=== PATIENT | female | born 1950 | race African-American/Black ===

== ENCOUNTER 2016-03-20 09:13 | Inpatient (IN) | payer OTHER ==
[2016-03-20 09:19] VITALS: BMI 35.2
--- NOTE | 2016-03-20 09:59 | PDOC ---
History of Present Illness - General Chief Complaint: Lightheaded Stated Complaint: WEAKNESS, DIZZINESS Time Seen by Provider: 03/20/16 09:28 History Source: Patient Exam Limitations: No Limitations - History of Present Illness Initial Comments: 03/20/16 10:08 65 year old female with PMH of hysterectomy 10 years ago presents to ED with dizziness upon standing and while walking. She states this started on Thursday and has been intermittent since then. She feels fine while seated or laying down. This is her first episode of vertigo like this. She also reports some increased urination & mild runny nose for last week or two. Denies any recent illness, sick contacts or changes in diet. No headache, chest pain, shortness of breath, visual changes, productive cough, diarrhea, constipation, nausea, vomiting or incontinence. Does not regularly see a PCP. Past History - Travel Traveled outside of the country in the last 30 days: No Close contact w/someone who was outside of country & ill: No - Past Medical History Allergies/Adverse Reactions: Allergies Allergy/AdvReac Type Severity Reaction Status Date / Time No Known Allergies Allergy Verified 03/20/16 09:19 Home Medications: Ambulatory Orders NK [No Known Home Medication] 03/20/16 HTN: Yes (HAS BEEN TOLD IN PAST SHE HAS ELEVATED BP (NEVER ON ANY MEDS)) Other medical history: DENIES - Surgical History Other Surgical History: 03/20/16 10:15 Hysterectomy (10-15 years ago) - Family Disease History Comment:: Breast Cancer Mother Parkinsons Father - Psycho/Social/Smoking Cessation Hx Suicidal Ideation: No Smoking Status: Yes Smoking History: Current every day smoker Number of Cigarettes Smoked Daily: 3 Information on smoking cessation initiated: No Hx Alcohol Use: No Drug/Substance Use Hx: No Review of Systems - Review of Systems Able to Perform ROS?: Yes Is the patient limited Turkmen proficient: No Constitutional: No: Symptoms Reported, See HPI, Chills, Diaphoresis, Fever, Loss of Appetite, Malaise, Night Sweats, Weakness, Weight Stable, Unintentional Wgt. Loss, Unexplained wgt Loss, Other Respiratory: Yes: Other (Runny nose) : Yes: Other (increased urination) Neurological: Yes: Unsteady Gait *Physical Exam - Vital Signs Last Vital Signs Temp Pulse Resp BP Pulse Ox 98.3 F 107 H 18 164/84 96 03/20/16 09:15 03/20/16 09:15 03/20/16 09:15 03/20/16 09:15 03/20/16 09:15 - Physical Exam General Appearance: Yes: Nourished, Appropriately Dressed HEENT: positive: EOMI, VERONIKA, Normal ENT Inspection Neck: positive: Trachea midline, Normal Thyroid, Supple Respiratory/Chest: positive: Lungs Clear, Normal Breath Sounds Cardiovascular: positive: Regular Rhythm, Regular Rate, S1, S2 Gastrointestinal/Abdominal: positive: Normal Bowel Sounds, Flat, Soft Musculoskeletal: positive: Normal Inspection Extremity: positive: Normal Inspection, Normal Range of Motion Integumentary: positive: Normal Color, Dry, Warm Neurologic: positive: referral management liaison II-XII NML intact, Fully Oriented, Alert, Normal Mood/ Affect, Motor Strength 5/5, Other (Vertigo upon standing, needs assistance walking short distances due to gait imbalance, NEGATIVE NYSTAGMUS) Heart Score/ECG Review - ECG Impressions Comment:: 03/20/16 10:14 Normal Sinus Rhythm, Voltage criteria for LVH, Nonspecific T-wave abnormality, QTC 464, HR 95. No old EKG's available. ED Treatment Course - LABORATORY CBC & Chemistry Diagram: 03/20/16 09:59 03/20/16 09:59 Medical Decision Making - Medical Decision Making 03/20/16 10:19 Ordered CBC, CMP, UA. Will order Head CT given patient's HTN & Smoking history. Gentle IV hydration started. 03/20/16 16:13 CT Head notable for right caudate head infarct of indeterminate age (also likely a small focal left anterior periventricular old infarct) Neurology was paged and agrees with decision to admit patient for further workup /treatment as her gait is still diminished. Dr Bond notified and accepts admission. NIH stroke scale-2 *DC/Admit/Observation/Transfer Diagnosis at time of Disposition: CVA (cerebral vascular accident), Vertigo, Neurologic gait dysfunction - Discharge Dispostion Admit: Yes
[2016-03-20] MEDS ORDERED: MECLIZINE HCL 25 MG TABLET (FP) PO ONE (10:06)
--- NOTE | 2016-03-20 10:10 | PDOC ---
Attending Attestation - Medical Decision Making 03/20/16 12:[address] Martines (neurologist bond analyst) at 12:34. 03/20/16 12:[address] Martines at 12:38. <Nam Bhatia - Last Filed: 03/20/16 12:38> - Resident Resident Name: Biju Pope - ED Attending Attestation I have performed the following: I have examined & evaluated the patient, The case was reviewed & discussed with the resident, I agree w/resident's findings & plan - HPI HPI: 03/20/16 10:08 65-year-old female with a negative past medical history Presents with some vertigo, dizziness nd unsteady gait when standing up and walking for the past few days She denies any focal neurologic complaints She denies any blurred vision or double vision She denies any headache She denies any recent intercurrent illnesses She states she is fine sitting down without any change in position She denies any chest pain or shortness of breath - Physicial Exam PE: 03/20/16 10:08 To my physical exam Head is normocephalic and atraumatic Lungs are clear Heart is regular Abdomen is soft and nontender PERRL, EOMI, without nystagmus Rapid change in head position causes some dizziness/vertigo Motor is 5 out of 5 and equal in the upper and lower extremities bilaterally Gait-patient gets dizzy standing up and gait is unstable-I needed to sit her back down immediately - Medical Decision Making 03/20/16 10:09 EKG Normal sinus rhythm 95, normal axis First degree AV block Normal QRS duration QTC 464 LVH by voltage criteria Nonspecific ST-T wave abnormality No old EKGs are available for comparison at this time 03/20/16 10:52 Possible simple vertigo, however, because of abnormal gait, will check CT scan labwork and reevaluate after Antivert Symptoms started a few days ago 03/20/16 12:27 Laboratory Results - last 24 hr 03/20/16 03/20/16 03/20/16 09:59 09:59 10:10 WBC 6.7 RBC 5.05 Hgb 13.7 Hct 42.0 MCV 83.2 MCHC 32.7 RDW 14.4 Plt Count 231 MPV 9.1 Neutrophils % 51.8 Lymphocytes % 40.4 H Monocytes % 6.2 Eosinophils % 0.6 Basophils % 1.0 Sodium 140 Potassium 4.0 Chloride 106 Carbon Dioxide 26 Anion Gap 8 BUN 12 Creatinine 0.9 Creat Clearance w eGFR > 60 Random Glucose 128 H Calcium 9.4 Total Bilirubin 0.3 AST 11 L ALT 25 Alkaline Phosphatase 61 Total Protein 7.3 Albumin 4.1 Urine Color Yellow Urine Appearance Clear Urine pH 5.0 Ur Specific Grace 1.016 Urine Protein Negative Urine Glucose (UA) Negative Urine Ketones Negative Urine Blood Negative Urine Nitrite Negative Urine Bilirubin Negative Urine Urobilinogen Negative Ur Leukocyte Esterase Trace H Urine RBC 1 Urine WBC 1 Ur Epithelial Cells Rare Urine Mucus Rare CT scan of the head without Mild atrophy, chronic microvascular ischemic changes There is a right caudate head infarct of indeterminate age There is also likely a small focal left anterior periventricular old infarct 03/20/16 12:50 The patient up to walk her, and her gait is still a little off , but slightly better than earlier handy earlier Case discussed with Dr. WyattMdqbset-jmipqnjea-pjxe admit, plan is for MRI and further possible stroke workup Case discussed with Dr. Bond-service medicine-will admit NIH stroke scale-2 <Marlee Brannon - Last Filed: 03/20/16 12:54> Discharge Disposition - Discharge Dispostion Last Admission D/C Date: 12/01/98 Admit: Yes <Marlee Brannon - Last Filed: 03/20/16 12:54> - Diagnosis CVA (cerebral vascular accident), Vertigo, Neurologic gait dysfunction NIH Stroke Scale - Initial Evaluation Level of consciousness: Alert Ask patient the month and their age: Answers both correctly Ask patient to open & close eyes; make fist and let go: Obeys both correctly Best gaze (horizontal eye movement): Normal Visual field testing: No visual field loss Facial paresis (Show teeth/raise eyebrows/close eyes tight): Normal symmetrical movement Motor Function: Left Arm: Normal Motor Function: Right Arm: Normal (extends arm 90 (or 45) degrees for 10 seconds without drift Motor Function: Left Leg: Normal (extends leg 30 degrees for 5 seconds without drift) Motor Function: Right Leg: Normal (extends leg 30 degrees for 5 seconds without drift) Limb Ataxia: Present in two limbs Sensory(Use pinprick test arms,legs,trunk,face/side to side): Normal Best language (Describe picture, name items, read sentences): No Aphasia Dysarthria (read several words): Normal articulation Extinction and Inattention: No abnormality - Total Score NIH Stroke Scale Score: 2 <Marlee Brannon - Last Filed: 03/20/16 12:54>
[2016-03-20] MEDS ORDERED: SODIUM CHLORIDE 1,000 ML IV SCH (10:15)
[2016-03-20 10:35] LABS: EOSINOPHIL 0.6 % (0-4.5); MCH 27.2 pg (25.7-33.7); MCHC 32.7 g/dl (32.0-36.0); MEAN CELL VOLUME 83.2 fl (80-96); MEAN PLT VOLUME 9.1 fl (7.5-11.1); NEUTROPHILS 51.8 % (42.8-82.8); PLATELET COUNT 231 K/MM3 (134-434); RDW 14.4 % (11.6-15.6); WHITE BLOOD COUNT 6.7 K/mm3 (4.0-10.0)
[2016-03-20 10:54] LABS: ALBUMIN 4.1 g/dl (3.4-5.0); ANION GAP 8 (8-16); CALCIUM 9.4 mg/dL (8.5-10.1); CO2 26 mmol/L (21-32); CREATININE 0.9 mg/dL (0.55-1.02); GLUCOSE,RANDOM 128 mg/dL (74-106); SGOT/AST 11 U/L (15-37); SGPT/ALT 25 U/L (12-78); TOT PROT 7.3 g/dl (6.4-8.2)
[2016-03-20 11:00] LABS: ALK PHOS 61 U/L (45-117); BILIRUBIN,TOTAL 0.3 mg/dL (0.2-1.0)
[2016-03-20 11:03] LABS: URINE APPEARANCE CLEAR; URINE BILIRUBIN NEGATIVE (NEGATIVE); URINE BLOOD NEGATIVE (NEGATIVE); URINE COLOR YELLOW; URINE GLUCOSE (UA) NEGATIVE (NEGATIVE); URINE KETONE NEGATIVE (NEGATIVE); URINE NITRITE NEGATIVE (NEGATIVE); URINE PROTEIN NEGATIVE (NEGATIVE); URINE UROBILINOGEN NEGATIVE E.U./dl (0.2-1.0)
[2016-03-20 11:07] LABS: URINE LEUK ESTERASE TRACE (NEGATIVE)
[2016-03-20 11:09] LABS: URINE MUCUS RARE; URINE RBC 1 /hpf (0-3); URINE WBC 1 /hpf (3-5)
[2016-03-20] MEDS ORDERED: MECLIZINE HCL 25 MG TABLET (FP) ONE (11:49)
[2016-03-20] MEDS: SODIUM CHLORIDE 500 ML IV SCH (12:03)
--- NOTE | 2016-03-20 12:33 | EKG ---
Test Reason : Blood Pressure : / mmHG Vent. Rate : 095 BPM Atrial Rate : 095 BPM P-R Int : 200 ms QRS Dur : 086 ms QT Int : 370 ms P-R-T Axes : 023 014 033 degrees QTc Int : 464 ms NORMAL SINUS RHYTHM VOLTAGE CRITERIA FOR LEFT VENTRICULAR HYPERTROPHY NONSPECIFIC T WAVE ABNORMALITY ABNORMAL ECG WHEN COMPARED WITH ECG OF 23-NOV-1998 10:42, NO SIGNIFICANT CHANGE WAS FOUND Confirmed by WENDIE DESAI, DONA ([id number]) on 03/20/2016 12:33:24 PM Referred By: Confirmed By:DONA PRESSLEY MD
--- NOTE | 2016-03-20 15:48 | CON.NEURO ---
Consult Consult Specialty:: [facility] Referred by:: ER Reason for Consultation:: dizzy - History of Present Illness History of Present Illness: 65 woman with PMH CAD OA Hysterectomy With dizzy feeling off balance No nausea No abdominal pain no CP Seen in [facility] ER Head CT noted and reviewed - History Source History Provided By: Patient Limitations to Obtaining History: No Limitations - Alcohol/Substance Use Hx Alcohol Use: No - Smoking History Smoking history: Current every day smoker Aproximately how many cigarettes per day: 3 Home Medications - Allergies Allergies/Adverse Reactions: Allergies Allergy/AdvReac Type Severity Reaction Status Date / Time No Known Allergies Allergy Verified 03/20/16 09:19 - Home Medications Home Medications: Ambulatory Orders NK [No Known Home Medication] 03/20/16 Family Disease History - Family Disease History Family History: Unable to Obtain Review of Systems - Review of Systems Constitutional: reports: No Symptoms Eyes: reports: No Symptoms HENT: reports: No Symptoms Physical Exam-Neuro Vital Signs: Vital Signs Temperature 98.3 F 03/20/16 09:15 Pulse Rate 107 H 03/20/16 09:15 Respiratory Rate 18 03/20/16 09:15 Blood Pressure 164/84 03/20/16 09:15 O2 Sat by Pulse Oximetry (%) 100 03/20/16 13:58 Constitutional: Yes: Well Nourished Neck: Yes: WNL Cardiovascular: Yes: WNL - Neuro Exam Level Of Consciousness: Yes: Oriented to Person, Oriented to Place, Oriented to Time Eyes: Yes: PERRLA Speech: WNL Dominant Hand: Right Cranial Nerves II-XII Intact: Yes Gag: Present DTR's: 1+ Left Bicep, 1+ Right Bicep, 1+ Left Brachioradialis, 1+ Right Brachioradialis Response to light touch: Normal Response to pain prick: Normal Response to temperature: Normal Response to vibration: Normal Motor Strength: 4/5: Left Arm, Right Arm, Left Leg, Right Leg Imaging - Results Cat Scan: Image Reviewed Problem List - Problems (1) CVA (cerebral vascular accident) Code(s): I63.9 - CEREBRAL INFARCTION, UNSPECIFIED (2) Vertigo Code(s): R42 - DIZZINESS AND GIDDINESS Assessment/Plan 1. No TPA 2. Head Ct is overhead 3. MRI brain with 4. Fall precaution 5. C Duplex Thank you for the kind referral
[2016-03-20] MEDS ORDERED: LISINOPRIL 10 MG TABLET (FP) PO ONE (16:59)
[2016-03-20] MEDS ORDERED: LISINOPRIL 5 MG TABLET (FP) ONE (17:00)
[2016-03-20] MEDS ORDERED: MECLIZINE HCL 25 MG TABLET (FP) PO PRN (19:25)
[2016-03-20] MEDS ORDERED: PNEUMOC 13-VAL CONJ-DIP CRM/PF 0.5 ML DISP.SYRIN IM ONE (21:45)
[2016-03-21 07:12] LABS: BASOPHIL 0.8 % (0-2.0); EOSINOPHIL 1.8 % (0-4.5); MCH 27.7 pg (25.7-33.7); MCHC 33.3 g/dl (32.0-36.0); MEAN CELL VOLUME 83.1 fl (80-96); MEAN PLT VOLUME 8.7 fl (7.5-11.1); NEUTROPHILS 46.1 % (42.8-82.8); PLATELET COUNT 200 K/MM3 (134-434); RDW 14.3 % (11.6-15.6); WHITE BLOOD COUNT 6.7 K/mm3 (4.0-10.0)
[2016-03-21 07:42] LABS: ALBUMIN 3.7 g/dl (3.4-5.0); ANION GAP 8 (8-16); CO2 27 mmol/L (21-32); GLUCOSE,RANDOM 115 mg/dL (74-106)
[2016-03-21 07:49] LABS: ALK PHOS 47 U/L (45-117); BILIRUBIN,TOTAL 0.4 mg/dL (0.2-1.0); CREATININE 0.8 mg/dL (0.55-1.02); SGOT/AST 8 U/L (15-37); SGPT/ALT 19 U/L (12-78); TOT PROT 6.4 g/dl (6.4-8.2)
[2016-03-21] MEDS: LISINOPRIL 10 MG TABLET (FP) PO SCH (09:23)
--- NOTE | 2016-03-21 09:56 | HP ---
Admitting History and Physical - Admission History of Present Illness: 65 year old female with PMH of hysterectomy 10 years ago presents to ED with dizziness upon standing and while walking. She states this started on Thursday and has been intermittent since then. She feels fine while seated or laying down. This is her first episode of vertigo like this. She also reports some increased urination & mild runny nose for last week or two. Denies any recent illness, sick contacts or changes in diet. No headache, chest pain, shortness of breath, visual changes, productive cough, diarrhea, constipation, nausea, vomiting or incontinence. Does not regularly see a PCP. - Past Medical History Cardiovascular: Yes: HTN, Hyperlipdemia - Past Surgical History Past Surgical History: Yes: Hysterectomy - Smoking History Smoking history: Current every day smoker Have you smoked in the past 12 months: Yes Aproximately how many cigarettes per day: 3 - Alcohol/Substance Use Hx Alcohol Use: No Home Medications - Allergies Allergies/Adverse Reactions: Allergies Allergy/AdvReac Type Severity Reaction Status Date / Time No Known Allergies Allergy Verified 03/20/16 09:19 - Home Medications Home Medications: Ambulatory Orders NK [No Known Home Medication] 03/20/16 Review of Systems - Review of Systems Cardiovascular: denies: Chest Pain Respiratory: denies: Cough, SOB Gastrointestinal: denies: Abdominal Pain Neurological: reports: Change in Speech, Weakness, Other (DIZZINESS) Physical Examination Vital Signs: Vital Signs Temperature 97.6 F 03/21/16 06:00 Pulse Rate 84 03/21/16 06:00 Respiratory Rate 20 03/21/16 06:00 Blood Pressure 145/84 03/21/16 06:00 O2 Sat by Pulse Oximetry (%) 98 03/20/16 16:53 Cardiovascular: Yes: Regular Rate and Rhythm Respiratory: Yes: Regular, CTA Bilaterally Gastrointestinal: Yes: Normal Bowel Sounds, Soft Neurological: Yes: Alert, Oriented, Dysarthria Labs: CBC, BMP 03/21/16 05:38 03/21/16 05:38 Imaging - Results Cat Scan: Report Reviewed Problem List - Problems (1) CVA (cerebral vascular accident) Assessment/Plan: STATIN/ASA/BP CONTROL ECHO CAROTID MRI Code(s): I63.9 - CEREBRAL INFARCTION, UNSPECIFIED (2) HTN (hypertension) Code(s): I10 - ESSENTIAL (PRIMARY) HYPERTENSION (3) HLD (hyperlipidemia) Assessment/Plan: LIPITOR Code(s): E78.5 - HYPERLIPIDEMIA, UNSPECIFIED (4) Diabetes Assessment/Plan: MONITOR Code(s): E11.9 - TYPE 2 DIABETES MELLITUS WITHOUT COMPLICATIONS
--- NOTE | 2016-03-21 10:35 | CONSULT ---
Admitting History and Physical - Primary Care Physician PCP: Rambo Samuels - Admission History of Present Illness: Per EMR: "03/20/16 10:08 65 year old female with PMH of hysterectomy 10 years ago presents to ED with dizziness upon standing and while walking. She states this started on Thursday and has been intermittent since then. She feels fine while seated or laying down. This is her first episode of vertigo like this. She also reports some increased urination & mild runny nose for last week or two. Denies any recent illness, sick contacts or changes in diet. No headache, chest pain, shortness of breath, visual changes, productive cough, diarrhea, constipation, nausea, vomiting or incontinence. 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 History - Admission Reason For Visit: CVA,VERTIGO,NEUROLOGIC GAIT DYSFUNCTION - Diagnostics X-ray: Report Reviewed CT Scan: Report Reviewed ( CT scan of the head without Mild atrophy, chronic microvascular ischemic changes There is a right caudate head infarct of indeterminate age There is also likely a small focal left anterior periventricular old infarct) - General Mental Status: Alert and Oriented, Awake and Alert, Able to Follow Commands, Flat Affect Attention: Intact Ability to Follow Directions: Excellent Head/Neck Control: WFL - Hearing Hearing: Normal Speech Evaluation - Communication Primary Language: LIBERIAN Oral Expression Ability: Yes: Mild Impairment - Speech Production Able to Make Needs Known: Yes: Mildly Impaired Intelligibility: Yes: Mildly Impaired - Speech Characteristics Voice Loudness: Normal Voice Pitch: Yes: Normal Voice Phonatory-based Quality: Yes: Normal Speech Pattern: Impaired Speech Clarity: < 75% Nasal Resonance: Normal Articulation: Yes: Imprecise (mild) Dysfluency: Yes: Clonic (Sound repetitions) - Language/Auditory Comprehension Follows: Yes: 2 Stage Simple Commands - Language/Verbal Expression Able to Respond to Simple Queries: Yes: Mildly Impaired Able to Communicate Wants and Needs: Yes: Mildly Impaired Functional Communication Status: Yes: Mildly Impaired - Memory/Perception FCI Memory: Yes: WNL Short Term Memory: Yes: WNL - Swallow Evaluation/Bedside Assessment Current Nutritional Intake: Regular, Thin Liquids Oral Secretions: Yes: WFL Dentition: Yes: Adequate Facial Symmetry at Rest: Facial Droop Right Facial Symmetry on Retraction: Facial Droop Right Pucker Lips: Droops Right Smile: Droops Right Lingual Movement: Symmetric Lingual Speed of Movement: Normal Lingual Movement Strgth Against Opposition: Normal Lingual Movement Characteristics: Normal Velopharyngeal Movement: Normal Laryngeal Elevation: WFL Laryngeal Movement: Able to Palpate Labial Seal: WFL Chewing: WFL Oral Prep Time: WFL A-P Transit: WFL Pocketing: None Timing of Swallow: WFL Coughing/Throat Clear: No Change in Voice: No Recommendations - Speech Evaluation, Impression/Plan Impression: Right facial. Mild dysfluency, phonemic errors in propositional speech. Follows complex commands. Good naming/repetition. Mild expressive Aphasia?/Apraxia.Swallowing intact overtly. - Disposition Discharge to: Rehabilitation Center (Pt was independent premorbidly, now walking with walker with imbalance, and mild expressive aphasia/apraxia. Pt would benefit from intensive rehab to return to premorbid level of function.) - Dysphagia Impressions/Plan Swallowing Skills: WFL Dysphagia Impressions: No Impairment *Silent aspiration: cannot be R/O at bedside Dysphagia Treatment Plan: Labial Exercises (Given facial exercises.) - Recommendations Diet Consistency: Regular Medication Administration: Whole with water Liquids: Thin Liquids
[2016-03-21 11:58] LABS: CHOLESTEROL 281 mg/dL (50-200)
[2016-03-21 12:07] LABS: LDL CHOLESTEROL (ONLY SJRH) 183 mg/dL (5-100); THYROID STIMULATING HORMONE 1.37 uIU/ml (0.358-3.74)
[2016-03-21] MEDS: SODIUM CHLORIDE 500 ML IV SCH (13:02)
--- NOTE | 2016-03-21 13:21 | PN ---
Progress Note, Physician Chief Complaint: events noted, chart reviewed Alert awake oriented Follows one-step command No headache, no blurry vision. No double vision Carotid Doppler with no hemodynamic stenosis MRI of the brain with left pontine stroke No bleed no atrophy - Current Medication List Current Medications: Active Medications Aspirin (Ecotrin -) 325 mg PO DAILY [facility] Atorvastatin Calcium (Lipitor -) 40 mg PO HS [facility] Heparin Sodium (Porcine) (Heparin -) 5,000 unit SQ BID [facility] Sodium Chloride (Normal Saline -) 500 mls @ 100 mls/hr IV ASDIR [facility] Last Admin: 03/21/16 13:02 Dose: Not Given Lisinopril (Prinivil) 10 mg PO DAILY [facility] Last Admin: 03/21/16 09:23 Dose: 10 mg Meclizine HCl (Antivert -) 25 mg PO Q8H PRN PRN Reason: VERTIGO - Objective Vital Signs: Vital Signs Temperature 98.1 F 03/21/16 10:00 Pulse Rate 81 03/21/16 10:00 Respiratory Rate 20 03/21/16 10:00 Blood Pressure 142/75 03/21/16 10:00 O2 Sat by Pulse Oximetry (%) 98 03/21/16 10:00 Constitutional: Yes: Well Nourished Eyes: Yes: WNL Neurological: Yes: Alert, Oriented, Babinski negative ...Motor Strength: WNL Labs: CBC, BMP 03/21/16 05:38 03/21/16 05:38 Problem List - Problems (1) CVA (cerebral vascular accident) Code(s): I63.9 - CEREBRAL INFARCTION, UNSPECIFIED (2) Vertigo Code(s): R42 - DIZZINESS AND GIDDINESS Assessment/Plan . Stroke education Smoking cessation Antiplatelet treatment Target cholesterol less than 170 Weight loss Statin medication Patient can be discharged home with follow-up with neurology in 2 week home services will be okay Results of the echo
[2016-03-21] MEDS: ASPIRIN 325 MG ENTERIC COATED TABLET (FP) PO SCH (14:54)
[2016-03-21] MEDS: HEPARIN NA (PORCINE) 5,000 UNITS/ML 1ML VIAL SQ SCH ×2 (14:54→21:09)
--- NOTE | 2016-03-21 17:12 | CONSULT ---
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 Pt denies hx of NC, CHF, CP syndrome. She admits to not eating right but has just joined a gym in her building and has plans to work out. She developed unsteadiness on Thursday, and took Thursday off. As her symptoms persisted, she came yesterday. She was seen by Neurology who cleared her for d/c to rehab. 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 Medications - Allergies Allergies/Adverse Reactions: Allergies Allergy/AdvReac Type Severity Reaction Status Date / Time No Known Allergies Allergy Verified 03/20/16 09:19 - Home Medications Home Medications: Ambulatory Orders NK [No Known Home Medication] 03/20/16 Family Disease History - Family Disease History Family History: Denies (premature CAD) Review of Systems - Review of Systems Constitutional: reports: No Symptoms, Malaise Eyes: reports: No Symptoms HENT: reports: No Symptoms Neck: reports: No Symptoms Cardiovascular: reports: No Symptoms Respiratory: reports: No Symptoms Gastrointestinal: reports: No Symptoms Genitourinary: reports: No Symptoms Musculoskeletal: reports: No Symptoms Neurological: reports: Unsteady Gait Psychiatric: reports: No Symptoms Physical Exam Vital Signs: Vital Signs Temperature 98.4 F 03/21/16 15:00 Pulse Rate 105 H 03/21/16 15:00 Respiratory Rate 20 03/21/16 15:00 Blood Pressure 138/68 03/21/16 15:00 O2 Sat by Pulse Oximetry (%) 98 03/21/16 10:00 Constitutional: Yes: No Distress Eyes: Yes: Conjunctiva Clear HENT: Yes: Atraumatic Neck: Yes: Supple Cardiovascular: Yes: Regular Rate and Rhythm. No: Murmur Respiratory: Yes: CTA Bilaterally Gastrointestinal: Yes: Normal Bowel Sounds, Soft. No: Tenderness Extremities: Yes: Other (warm) Edema: No Peripheral Pulses WNL: Yes Neurological: Yes: Alert, Oriented Psychiatric: Yes: Alert, Oriented, Other (flat affect) Labs: CBC, BMP 03/21/16 05:38 03/21/16 05:38 Imaging - Results Chest X-ray: Report Reviewed, Image Reviewed MRI: Report Reviewed (left pontine CVA) EKG: Report Reviewed, Image Reviewed (SR with LVH) Other: Other (Echo (03/21/16) -> Nl Lv size and systolic function, mild DD, normal RV, trace-mild MR, mild NC) Assessment/Plan 65 yo female, with the above history, here with unsteady gait -. found with left pontine CVA on MRI HD stable Pt likely has been hypertensive for awhile, untreated -. has LVH on EKG -. now on lisinopril She also has hyperlipidemia -. LDL is 183 -. started on lipitor 40 Echo is unremarkable Carotid USG with mild disease Rec: Continue lipitor, BLAIRE-I and ASA Complete smoking cessation. Long discussion with pt regarding risk factor modification Ok to d/c to rehab from cardiac standpoint Plan for outpt stress test once out of rehab Thanks!
--- NOTE | 2016-03-21 17:24 | CONS ---
DATE OF CONSULTATION: 03/21/2016 PHYSICAL MEDICINE REHABILITATION CONSULTATION REFERRING PHYSICIAN: Rambo Samuels M.D. HISTORY OF PRESENT ILLNESS: Patient is a 65-year-old woman without significant past medical history who was admitted with dizziness and subsequently developed slurred speech and right sided weakness. Patient states that she was in her normal state of health until a few days ago when she developed sudden onset of dizziness and presented to the emergency room at [facility] on the morning of March 20. She underwent a CT of the head, and this demonstrated a likely left anterior periventricular infarct which was thought to be old as well as a right caudate infarct of indeterminate age. She underwent an MRI of the brain which showed a subacute nonhemorrhagic left paramedian pontine infarct not crossing the midline , as well as some chronic bilateral basal ganglia lacunar infarcts. The patient was seen by speech pathology as well as neurology and physical therapy, all of whom recommended inpatient rehabilitation for physical therapy, occupational therapy , and speech therapy. She did not have any difficulty swallowing but has some mild expressive aphagia/apraxia as well as some loss of balance. Her blood work did show elevated hemoglobin A1c of 6.4, and CBC showed normal WBC of 6.7, hemoglobin of 13.7, platelet count 231. Repeat done today was stable. Chemistry also was normal: sodium 140, potassium 4.0, chloride 106, CO2 of 26, BUN 12, creatinine 0.9, repeat blood work today was stable. Patient is on subcutaneous heparin as well as Antivert, Lipitor, and 325 mg Ecotrin, as well as lisinopril. Patient continues to have some speech problems but denies any difficulty swallowing or chewing. She has noted some right sided weakness, but the dizziness has abated. Patient did undergo an echocardiogram which is pending, as well as carotid Doppler study, which demonstrated some mild atherosclerotic disease but no hemodynamically significant stenosis. Patient is uncertain whether she prefers to go for inpatient rehabilitation versus home with outpatient services. REVIEW OF PAST MEDICAL AND SURGICAL HISTORY: Per the patient, is absolutely negative. She states she was on no medication and not aware of any diabetes or pre-diabetic state. SOCIAL HISTORY: Lives alone in apartment with an elevator for access. She works as an divorce attorney free-lancing and did smoke tobacco per the admitting history and physical. Current function, she was evaluated by physical therapy and was able to ambulate with a rolling walker independently, transferring, but ambulation for 100 feet required supervision with a paretic gait pattern involving the right lower extremity. There was impaired balance noted. REVIEW OF SYSTEMS: No headache. No lightheadedness or dizziness. No blurry vision or double vision or change in vision. No nausea, vomiting, difficulty swallowing, difficulty chewing. No chest pain or shortness of breath. No dyspnea on exertion. No abdominal pain. She does note some weakness in the right upper and right lower extremity which his mild. No weakness in the left arm or left leg. She also notes that the dizziness has greatly abated and again currently no complaints of dizziness. No skin rash, no polyuria, dysuria. No fever, chills, weight loss, or weight gain. PHYSICAL EXAMINATION: General: Overweight woman seen sitting in a wheelchair, in no acute distress. HEENT: Normocephalic, atraumatic. Extraocular muscles appear intact. Neck: Supple. Extremities: Without any edema or calf tenderness. Neuromuscular: She is awake, alert, oriented x3. Cranial nerves 2-12 grossly intact, except for she has a right central 7th nerve involvement. Her speech is slightly slurred, but she has no word findings difficulties, although she does skip some words at times. 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 The right lower extremity has some mild weakness distally, 4+ out of 5 proximally, 3+ to 4 - out of 5 in the hip girdle. Normal sensation to pinprick, light touch, cold temperature. She has no gross arthritic change in the upper or lower extremities. Symmetric reflexes, upgoing toe on the right, downgoing on the left. No gross atrophy. No tenderness in the cervical or lumbar paraspinal musculature. Unable to ambulate her at this point. No assistive device. OVERALL IMPRESSION: 1. Deficit to mobility, activities of daily living. 2. 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 3. Gait ataxia. 4. Speech apraxia or mild aphasia. 5. Elevated hemoglobin A1c. 6. Overweight. 7. Tobacco use. PLAN/SUGGESTIONS: 1. Continue physical therapy for bed mobility transfers, gait training, strengthening, reconditioning. 2. Out of bed to chair. 3. Continue subcutaneous heparin for DVT prophylaxis. 4. Other medication per neurology and internal medicine. 5. Weight reduction, may benefit from dietary consult. 6. Smoking cessation. 7. Follow up regarding prediabetic state and diet control. 8. Patient would be an excellent candidate for inpatient rehabilitation in an acute rehabilitation facility such as [facility] or [place] for physical , occupational, and speech therapy. Otherwise, she will have to receive these services as an outpatient, depending on her response to inpatient treatment, her desires as well as length of stay. Thank you very much for this consultation. SHARMILA SAMUELS M.D. [id number] MTDD
[2016-03-21] MEDS: ATORVASTATIN CA 40 MG TABLET (FP) PO SCH (21:08)
[2016-03-22] MEDS: HEPARIN NA (PORCINE) 5,000 UNITS/ML 1ML VIAL SQ SCH ×2 (09:22→21:00)
[2016-03-22] MEDS: ASPIRIN 325 MG ENTERIC COATED TABLET (FP) PO SCH (09:22)
[2016-03-22] MEDS: LISINOPRIL 10 MG TABLET (FP) PO SCH (09:22)
--- NOTE | 2016-03-22 12:46 | CONSULT ---
Consult - text type - Consultation Consultation Note: CARDIOLOGY NO SYMPTOMS. NO CHEST PAIN/PALPITATIONS. MEDICATIONS REVIEWED. BLOOD PRESSURE 128-147 SYSTOLIC HEART RATE 78/MINUTE AFEBRILE 84 DIASTOLIC APPEARS WELL. NO CARITID BRUIT. NO MURMUR OR GALLOP. CLEAR LUNG AQUINO. NO FOCAL NEURO DEFICIT. ECG MONITOR SINUS RHYTHM. CHOLESTEROL 268. IMPRESSION WORKING DX PONTINE CVA DUE LARGELY TO POORLY CONTROLLED HYPERTENSION. NO EVIDENCE OF ACUTE CARDIAC EVENT. MULTIPLE RISK FACTORS FOR ATHEROSCLEROTIC HEART DISEASE. REC: DISCONTINUE TELEMETRY. COMPLETE CESSATION OF SMOKING. RISK FACTOR MODIFICATION. INCREASE LISNOPRIL DOSE IF REQUIRED TO MAINTAIN OPTIMUM BLOOD PRESSURE LEVELS. TARGET LDL LEVEL TO ABOUT 70. OUT PATIENT CARDIOLOGY FOLLOW UP WITH PLANS FOR STRESS TEST STUDY DIRECTED BY NEURO/IM IMPORTANCE OF OUT PATIENT FOLLOW UP EMPHASIZED TO PATIENT WILL FOLLOW PRN. PLEASE RE CONSULT IF NECESSARY
--- NOTE | 2016-03-22 13:43 | PN ---
Progress Note, Physician - Current Medication List Current Medications: Active Medications Aspirin (Ecotrin -) 325 mg PO DAILY [facility] Last Admin: 03/22/16 09:22 Dose: 325 mg Atorvastatin Calcium (Lipitor -) 40 mg PO HS [facility] Last Admin: 03/21/16 21:08 Dose: 40 mg Heparin Sodium (Porcine) (Heparin -) 5,000 unit SQ BID [facility] Last Admin: 03/22/16 09:22 Dose: 5,000 unit Sodium Chloride (Normal Saline -) 500 mls @ 100 mls/hr IV ASDIR [facility] Last Admin: 03/21/16 13:02 Dose: Not Given Lisinopril (Prinivil) 10 mg PO DAILY [facility] Last Admin: 03/22/16 09:22 Dose: 10 mg Meclizine HCl (Antivert -) 25 mg PO Q8H PRN PRN Reason: VERTIGO - Objective Vital Signs: Vital Signs Temperature 98.2 F 03/22/16 06:00 Pulse Rate 79 03/22/16 06:00 Respiratory Rate 20 03/22/16 06:00 Blood Pressure 146/76 03/22/16 06:00 O2 Sat by Pulse Oximetry (%) 98 03/22/16 09:00 Labs: CBC, BMP 03/21/16 05:38 03/21/16 05:38 Problem List - Problems (1) CVA (cerebral vascular accident) Code(s): I63.9 - CEREBRAL INFARCTION, UNSPECIFIED (2) Vertigo Code(s): R42 - DIZZINESS AND GIDDINESS
[2016-03-22] MEDS: SODIUM CHLORIDE 500 ML IV SCH (14:27)
--- NOTE | 2016-03-22 16:01 | PN ---
Progress Note, Physician Chief Complaint: THIS IS MY FIRST MEDICAL ENCOUNTER WITH THIS PATIENT CHART AND EVENTS REVIEWED AWAKE ALERT, FAMILY BEDSIDE ABLE TO WALK MOVING HER BOWELS +APPETITE - Current Medication List Current Medications: Active Medications Aspirin (Ecotrin -) 325 mg PO DAILY [facility] Last Admin: 03/22/16 09:22 Dose: 325 mg Atorvastatin Calcium (Lipitor -) 40 mg PO HS [facility] Last Admin: 03/21/16 21:08 Dose: 40 mg Heparin Sodium (Porcine) (Heparin -) 5,000 unit SQ BID [facility] Last Admin: 03/22/16 09:22 Dose: 5,000 unit Sodium Chloride (Normal Saline -) 500 mls @ 100 mls/hr IV ASDIR [facility] Last Admin: 03/22/16 14:27 Dose: Not Given Lisinopril (Prinivil) 10 mg PO DAILY [facility] Last Admin: 03/22/16 09:22 Dose: 10 mg Meclizine HCl (Antivert -) 25 mg PO Q8H PRN PRN Reason: VERTIGO - Objective Vital Signs: Vital Signs Temperature 98.3 F 03/22/16 14:32 Pulse Rate 92 H 03/22/16 14:32 Respiratory Rate 18 03/22/16 14:32 Blood Pressure 142/69 03/22/16 14:32 O2 Sat by Pulse Oximetry (%) 98 03/22/16 09:00 Constitutional: Yes: No Distress Eyes: Yes: WNL HENT: Yes: WNL Neck: Yes: WNL Cardiovascular: Yes: WNL Respiratory: Yes: WNL Gastrointestinal: Yes: WNL Genitourinary: Yes: WNL Musculoskeletal: Yes: Muscle Weakness Extremities: Yes: WNL Edema: Yes Peripheral Pulses WNL: Yes Integumentary: Yes: WNL Wound/Incision: Yes: Clean/Dry Neurological: Yes: Weakness ...Motor Strength: LLE, RLE Psychiatric: Yes: WNL, Other Labs: CBC, BMP 03/21/16 05:38 03/21/16 05:38 Problem List - Problems (1) CVA (cerebral vascular accident) Code(s): I63.9 - CEREBRAL INFARCTION, UNSPECIFIED Qualifiers: CVA mechanism: embolism Precerebral and cerebral artery: unspecified precerebral artery Qualified Code(s): I63.10 - Cerebral infarction due to embolism of unspecified precerebral artery (2) Diabetes Code(s): E11.9 - TYPE 2 DIABETES MELLITUS WITHOUT COMPLICATIONS (3) HLD (hyperlipidemia) Code(s): E78.5 - HYPERLIPIDEMIA, UNSPECIFIED (4) HTN (hypertension) Code(s): I10 - ESSENTIAL (PRIMARY) HYPERTENSION (5) Neurologic gait dysfunction Code(s): R26.9 - UNSPECIFIED ABNORMALITIES OF GAIT AND MOBILITY (6) Vertigo Code(s): R42 - DIZZINESS AND GIDDINESS Assessment/Plan LIPID CONTROL BP CONTROL OOB TO CHAIR PT EVAL FALL PRECAUTIONS NEURO CHECKS SNF NEUROLOGY AND CARDIOLOGY EVAL
[2016-03-22] MEDS: ATORVASTATIN CA 40 MG TABLET (FP) PO SCH (21:01)
[2016-03-23 06:41] LABS: HOMOCYSTEINE (CARDIO) 8.1 umol/L (0.0-15.0)
[2016-03-23] MEDS: LISINOPRIL 10 MG TABLET (FP) PO SCH (09:18)
[2016-03-23] MEDS: HEPARIN NA (PORCINE) 5,000 UNITS/ML 1ML VIAL SQ SCH ×2 (09:19→21:28)
[2016-03-23] MEDS: ASPIRIN 325 MG ENTERIC COATED TABLET (FP) PO SCH (09:19)
--- NOTE | 2016-03-23 12:22 | PN ---
Progress Note, Physician Chief Complaint: AWAKE ALERT EDUCATION OF STROKE ETIOLOGY EXPLAINED NO HEADACHES, NO DIZZINESS C/O SLUGGISH GATE AND SPEECH DISTURBANCE - Current Medication List Current Medications: Active Medications Aspirin (Ecotrin -) 325 mg PO DAILY [facility] Last Admin: 03/23/16 09:19 Dose: 325 mg Atorvastatin Calcium (Lipitor -) 40 mg PO HS [facility] Last Admin: 03/22/16 21:01 Dose: 40 mg Heparin Sodium (Porcine) (Heparin -) 5,000 unit SQ BID [facility] Last Admin: 03/23/16 09:19 Dose: 5,000 unit Sodium Chloride (Normal Saline -) 500 mls @ 100 mls/hr IV ASDIR [facility] Last Admin: 03/22/16 14:27 Dose: Not Given Lisinopril (Prinivil) 10 mg PO DAILY [facility] Last Admin: 03/23/16 09:18 Dose: 10 mg Meclizine HCl (Antivert -) 25 mg PO Q8H PRN PRN Reason: VERTIGO - Objective Vital Signs: Vital Signs Temperature 98.5 F 03/23/16 10:00 Pulse Rate 110 H 03/23/16 10:00 Respiratory Rate 03/23/16 10:00 Blood Pressure 153/76 03/23/16 10:00 O2 Sat by Pulse Oximetry (%) 96 03/23/16 10:00 Constitutional: Yes: Mild Distress Eyes: Yes: WNL HENT: Yes: WNL Neck: Yes: WNL Cardiovascular: Yes: WNL Respiratory: Yes: WNL Gastrointestinal: Yes: WNL Genitourinary: Yes: WNL Musculoskeletal: Yes: Muscle Weakness Extremities: Yes: WNL Edema: Yes Edema: LLE: Trace, RLE: Trace Peripheral Pulses WNL: Yes Integumentary: Yes: WNL Wound/Incision: Yes: Clean/Dry Neurological: Yes: Facial Droop, Unsteady Gait ...Motor Strength: LLE, RLE Psychiatric: Yes: Other Labs: CBC, BMP 03/21/16 05:38 03/21/16 05:38 Problem List - Problems (1) CVA (cerebral vascular accident) Code(s): I63.9 - CEREBRAL INFARCTION, UNSPECIFIED Qualifiers: CVA mechanism: embolism Precerebral and cerebral artery: unspecified precerebral artery Qualified Code(s): I63.10 - Cerebral infarction due to embolism of unspecified precerebral artery (2) Diabetes Code(s): E11.9 - TYPE 2 DIABETES MELLITUS WITHOUT COMPLICATIONS (3) HLD (hyperlipidemia) Code(s): E78.5 - HYPERLIPIDEMIA, UNSPECIFIED (4) HTN (hypertension) Code(s): I10 - ESSENTIAL (PRIMARY) HYPERTENSION (5) Neurologic gait dysfunction Code(s): R26.9 - UNSPECIFIED ABNORMALITIES OF GAIT AND MOBILITY (6) Vertigo Code(s): R42 - DIZZINESS AND GIDDINESS Assessment/Plan PATIENT AWAITING SNF PLACEMENT TO [place] LIPID CONTROL WITH GOAL LDL >70 ASA BP CONTROL AND WEIGHT LOSS DISCUSSED WITH PATIENT NEUROLOGY ROBERT
[2016-03-23] MEDS: ATORVASTATIN CA 40 MG TABLET (FP) PO SCH (21:28)
--- NOTE | 2016-03-24 08:31 | DS ---
Physical Examination Vital Signs: Vital Signs Temperature 98.2 F 03/24/16 06:00 Pulse Rate 85 03/24/16 06:00 Respiratory Rate 18 03/24/16 06:00 Blood Pressure 156/80 03/24/16 06:00 O2 Sat by Pulse Oximetry (%) 94 L 03/23/16 21:00 Cardiovascular: Yes: Regular Rate and Rhythm Respiratory: Yes: Regular, CTA Bilaterally Gastrointestinal: Yes: Normal Bowel Sounds, Soft Neurological: Yes: Pre-Existing Deficit Labs: CBC, BMP 03/21/16 05:38 03/21/16 05:38 Discharge Summary Reason For Visit: CVA,VERTIGO,NEUROLOGIC GAIT DYSFUNCTION Current Active Problems CVA (cerebral vascular accident) (Acute) Diabetes (Acute) HLD (hyperlipidemia) (Acute) HTN (hypertension) (Acute) Neurologic gait dysfunction (Acute) Vertigo (Acute) Hospital Course: 65 year old female with PMH of hysterectomy 10 years ago presents to ED with dizziness upon standing and while walking. She states this started on Thursday and has been intermittent since then. She feels fine while seated or laying down. This is her first episode of vertigo like this. She also reports some increased urination & mild runny nose for last week or two. Denies any recent illness, sick contacts or changes in diet. No headache, chest pain, shortness of breath, visual changes, productive cough, diarrhea, constipation, nausea, vomiting or incontinence. Does not regularly see a PCP. - Past Medical History Cardiovascular: Yes: HTN, Hyperlipdemia - Past Surgical History Past Surgical History: Yes: Hysterectomy Problems (1) CVA (cerebral vascular accident) Assessment/Plan: STATIN/ASA/BP CONTROL ECHO CAROTID MRI ACUTE--CVA Code(s): I63.9 - CEREBRAL INFARCTION, UNSPECIFIED (2) HTN (hypertension) CONTROLLED Code(s): I10 - ESSENTIAL (PRIMARY) HYPERTENSION (3) HLD (hyperlipidemia) Assessment/Plan: LIPITOR Code(s): E78.5 - HYPERLIPIDEMIA, UNSPECIFIED (4) Diabetes Assessment/Plan: MONITOR DIET Code(s): E11.9 - TYPE 2 DIABETES MELLITUS WITHOUT COMPLICATIONS Condition: Improved - Instructions Referrals: Rambo Samuels MD [Staff Physician] - 2 Weeks Disposition: [facility] - Home Medications Comprehensive Discharge Medication List: Ambulatory Orders Aspirin Coated [Ecotrin -] 325 mg PO DAILY tablet. 03/24/16 Atorvastatin Ca [Lipitor] 40 mg PO HS tablet 03/24/16 Heparin - 5,000 unit SQ BID vial 03/24/16 Lisinopril [Prinivil] 10 mg PO DAILY tablet 03/24/16 Meclizine HCl [Antivert -] 25 mg PO Q8H PRN #0 tablet 03/24/16 Metoprolol Tartrate [Lopressor -] 25 mg PO DAILY #30 tablet 03/24/16
--- NOTE | 2016-03-24 09:15 | PN ---
Progress Note, MEDICAL RADIATION TECH - Note Progress Note: "I'm reaally ready for rehab now!" Selected Entries 03/23/16 03/23/16 03/23/16 03:26 06:03 09:00 Breakfast 75% Lunch Temperature 98.1 F 98 F 03/23/16 03/23/16 03/23/16 10:00 14:00 16:25 Breakfast Lunch 75% Temperature 98.5 F 98.6 F 98.4 F 03/23/16 03/24/16 03/24/16 21:00 02:03 06:00 Breakfast Lunch Temperature 98.1 F 98.3 F 98.2 F Motivated, o x3, good insight, Excellent rehab candidate with goalsa to improve to premorbid level of function.
[2016-03-24] MEDS: ASPIRIN 325 MG ENTERIC COATED TABLET (FP) PO SCH (11:00)
[2016-03-24] MEDS: METOPROLOL TARTRATE 25 MG TABLET (FP) PO SCH (11:00)
[2016-03-24] MEDS: HEPARIN NA (PORCINE) 5,000 UNITS/ML 1ML VIAL SQ SCH ×2 (11:00→21:18)
[2016-03-24] MEDS: LISINOPRIL 10 MG TABLET (FP) PO SCH (11:00)
[2016-03-24] MEDS: ATORVASTATIN CA 40 MG TABLET (FP) PO SCH (21:18)
[2016-03-25 00:09] LABS: ALDOLASE 7.6 U/L (3.3-10.3)
[2016-03-25 06:29] VITALS: BP 146/85; PULSE 66; TEMP 98.2
--- NOTE | 2016-03-25 08:33 | DS ---
Physical Examination Vital Signs: Vital Signs Temperature 98.2 F 03/25/16 06:00 Pulse Rate 66 03/25/16 06:00 Respiratory Rate 18 03/25/16 06:00 Blood Pressure 146/85 03/25/16 06:00 O2 Sat by Pulse Oximetry (%) 95 03/24/16 21:00 Cardiovascular: Yes: Regular Rate and Rhythm Respiratory: Yes: Regular, CTA Bilaterally Gastrointestinal: Yes: Normal Bowel Sounds, Soft Neurological: Yes: Alert, Oriented, Dysarthria, Unsteady Gait Labs: CBC, BMP 03/21/16 05:38 03/21/16 05:38 Discharge Summary Reason For Visit: CVA,VERTIGO,NEUROLOGIC GAIT DYSFUNCTION Current Active Problems CVA (cerebral vascular accident) (Acute) Diabetes (Acute) HLD (hyperlipidemia) (Acute) HTN (hypertension) (Acute) Neurologic gait dysfunction (Acute) Vertigo (Acute) Hospital Course: 65 year old female with PMH of hysterectomy 10 years ago presents to ED with dizziness upon standing and while walking. She states this started on Thursday and has been intermittent since then. She feels fine while seated or laying down. This is her first episode of vertigo like this. She also reports some increased urination & mild runny nose for last week or two. Denies any recent illness, sick contacts or changes in diet. No headache, chest pain, shortness of breath, visual changes, productive cough, diarrhea, constipation, nausea, vomiting or incontinence. Does not regularly see a PCP. - Past Medical History Cardiovascular: Yes: HTN, Hyperlipdemia - Past Surgical History Past Surgical History: Yes: Hysterectomy Problems (1) CVA (cerebral vascular accident) Assessment/Plan: STATIN/ASA/BP CONTROL ECHO CAROTID MRI ACUTE--CVA Code(s): I63.9 - CEREBRAL INFARCTION, UNSPECIFIED (2) HTN (hypertension) CONTROLLED Code(s): I10 - ESSENTIAL (PRIMARY) HYPERTENSION (3) HLD (hyperlipidemia) Assessment/Plan: LIPITOR Code(s): E78.5 - HYPERLIPIDEMIA, UNSPECIFIED (4) Diabetes Assessment/Plan: MONITOR DIET Code(s): E11.9 - TYPE 2 DIABETES MELLITUS WITHOUT COMPLICATIONS Condition: Improved - Instructions Referrals: Rambo Samuels MD [Staff Physician] - 2 Weeks Disposition: [facility] - Home Medications Comprehensive Discharge Medication List: Ambulatory Orders Aspirin Coated [Ecotrin -] 325 mg PO DAILY tablet. 03/24/16 Atorvastatin Ca [Lipitor] 40 mg PO HS tablet 03/24/16 Heparin - 5,000 unit SQ BID vial 03/24/16 Lisinopril [Prinivil] 10 mg PO DAILY tablet 03/24/16 Meclizine HCl [Antivert -] 25 mg PO Q8H PRN #0 tablet 03/24/16 Metoprolol Tartrate [Lopressor -] 25 mg PO DAILY #30 tablet 03/24/16
[2016-03-25] MEDS: ASPIRIN 325 MG ENTERIC COATED TABLET (FP) PO SCH (09:33)
[2016-03-25] MEDS: HEPARIN NA (PORCINE) 5,000 UNITS/ML 1ML VIAL SQ SCH (09:33)
[2016-03-25] MEDS: LISINOPRIL 10 MG TABLET (FP) PO SCH (09:34)
[2016-03-25] MEDS: METOPROLOL TARTRATE 25 MG TABLET (FP) PO SCH (09:34)
== END 2016-03-25 10:37 | DRG 66 ==
LOC: JER 09:13 → JERBED 12:58 → J4S 18:59
PROVIDERS: ADMIT Family Medicine; ATTEND Family Medicine
DX: I63.9 Cerebral infarction, unspecified (principal); I10 Essential (primary) hypertension; E78.5 Hyperlipidemia, unspecified; E11.9 Type 2 diabetes mellitus without complications; F17.210 Nicotine dependence, cigarettes, uncomplicated; I25.10 Atherosclerotic heart disease of native coronary artery without angina pectoris; R26.81 Unsteadiness on feet; R42 Dizziness and giddiness; M19.90 Unspecified osteoarthritis, unspecified site
CPT/HCPCS: 36415; 70450-TC; 70551-TC; 80053; 80061; 81003; 81015; 82085; 82140; 82607; 83036; 83090; 83721; 84443; 85025; 85651; 86038; 86593; 87086; 93005; 93010; 93306-TC; 93880-TC; 97116-GP; 97161-GP; 99285-25; J1644

== ENCOUNTER 2022-08-03 10:13 | Emergency (ER) | payer OTHER ==
[2022-08-03 10:20] VITALS: BP 157/63; PULSE 67; RESP 18; TEMP 98.5; BMI 33.5
[2022-08-03] MEDS ORDERED: DIPHTH,PERTUSS(ACELL),TET 0.5 ML DISP.SYRIN IM ONE ×2 (10:36→11:35)
[2022-08-03] MEDS ORDERED: ACETAMINOPHEN 500 MG TABLET (FP) PO ONE (11:31)
[2022-08-03] MEDS ORDERED: ACETAMINOPHEN 500 MG TABLET (FP) ONE (11:34)
== END 2022-08-03 12:01 | disposition home or self-care (01) ==
LOC: JERFT 10:13
PROC: 0HQFXZZ Repair Right Hand Skin, External Approach (ICD-10-PCS; principal; 2022-08-03)
PROC: 3E0234Z Introduction of Serum, Toxoid and Vaccine into Muscle, Percutaneous Approach (ICD-10-PCS; 2022-08-03)
DX: S61.011A Laceration without foreign body of right thumb without damage to nail, initial encounter (principal); W25.XXXA Contact with sharp glass, initial encounter; Y93.G1 Activity, food preparation and clean up
CPT/HCPCS: 12002-25; 73130-TC-RT-FY; 90471; 90715; 99283-25

== ENCOUNTER 2022-08-17 10:37 | Emergency (ER) | payer OTHER ==
[2022-08-17 10:50] VITALS: BP 149/65; PULSE 64; RESP 18; TEMP 98; BMI 33.5
== END 2022-08-17 11:22 | disposition home or self-care (01) ==
LOC: JERFT 10:37
DX: Z48.02 Encounter for removal of sutures (principal)
CPT/HCPCS: 99281-25